=== PATIENT | female | born 1990 | race Caucasian/White ===

== ENCOUNTER 2016-03-12 12:48 | Outpatient (CLI) | payer OTHER ==
[~2016-03-12] VITALS: Ht 172.7 cm; Wt 73.0 kg
[~2016-03-12 12:48] MED LIST: ACET50TA PO; DOCU10ELUD PO; MOM30SS PO; PRENTAB9 PO; [UNRECOGNIZED DRUG - OTHER] TOP; lanolin cream TOP; motrin PO
[2016-03-12 13:08] VITALS: BP 113/77
[2016-03-12 14:10] VITALS: BP 92/55
[2016-03-12 15:55] VITALS: BP 108/67
[2016-03-12] MEDS ORDERED: LR 1,000 ML IV SCH (16:15)
[2016-03-12 17:01] VITALS: BP 97/55
[2016-03-12 17:25] LABS: MEAN CORPUSCULAR HEMOGLOBIN 30.2 pg (27.0-33.0); MEAN CORPUSCULAR HGB CONC 34.6 g/dl (32.0-36.5); MEAN CORPUSCULAR VOLUME 87.5 fl (80.0-96.0); RED CELL DISTRIBUTION WIDTH 13.5 % (11.5-14.5); WHITE BLOOD COUNT 9.6 K/mm3 (4.0-10.0)
[2016-03-12 18:46] VITALS: BP 100/56
== END 2016-03-12 20:35 | disposition home or self-care (01) ==
LOC: M LDO 12:48
PROVIDERS: ATTEND Obstetrics & Gynecology
DX: O26.853 Spotting complicating pregnancy, third trimester (principal); Z3A.32 32 weeks gestation of pregnancy; Z88.0 Allergy status to penicillin; Z88.1 Allergy status to other antibiotic agents

== ENCOUNTER → 2016-03-21 | Outpatient (CLI) | payer OTHER ==
--- NOTE | 2016-03-21 19:50 | REPUSA ---
CLINICAL HISTORY: BPP, EFW TECHNIQUE: Realtime sonographic images were obtained in multiple projections. COMMENTS: There is a single intrauterine gestation, transverse presentation. The biparietal diameter measures 8.4 cm. This corresponds to a gestational age of 33 weeks 6 days. The abdominal circumference and femur length measure 28.9 and 6.3 cm, respectively, and are relativel y proportionate to the BPD. The HC-AC ratio is normal. The composite age is 33 weeks 6 days. Estimated weight based on BPD and AC is 2117 grams. heart motion was observed. The heart rate is 136 beats per minute. The amniotic fluid volume is normal. The cervical length is 4.6 cm. IMPRESSION: Single, live, intrauterine gestation with a composite gestational age of 33 weeks 6 days. Estimated date of delivery is 06/05/2016.
== END ==
LOC: M RAD 17:34
PROVIDERS: ATTEND Obstetrics & Gynecology
DX: Z34.83 Encounter for supervision of other normal pregnancy, third trimester (principal)

== ENCOUNTER 2016-03-27 23:14 | Outpatient (CLI) | payer OTHER ==
[~2016-03-27] VITALS: Ht 172.7 cm; Wt 75.0 kg
[2016-03-27 23:30] VITALS: BP 106/72
== END 2016-03-28 01:10 | disposition home or self-care (01) ==
LOC: M LDO 23:14
PROVIDERS: ATTEND Obstetrics & Gynecology
DX: O44.43 Low lying placenta NOS or without hemorrhage, third trimester (principal); Z3A.34 34 weeks gestation of pregnancy

== ENCOUNTER → 2016-04-01 | Outpatient (CLI) | payer OTHER ==
--- NOTE | 2016-04-01 16:46 | REP ---
Obstetric sonography: History: at 35 weeks 1 day non reassuring NST. Limited OB sonography. The patient reports intermittent vaginal bleeding for the last 3 weeks. Findings: Scanning demonstrates a viable single intrauterine gestation in a cephalic lie. A posterior placenta is seen without evidence of previa or abruption. Grade 1. Closed cervical length is 3.1 cm. Transvaginal scanning of the cervix shows a hypoechoic hemorrhage covering the internal cervical os and measuring 5.6 x 1.4 x 4.1 cm. This shows some internal debris and septation. This is similar in size however to the prior study from 03/21/2016. Amniotic fluid index is normal 12.1 cm. Biophysical profile score is 8 out of a possible 8. The SD ratio in the umbilical cord artery by Doppler is elevated at 4.98 (2.00-3.00). Signed by Justo Willams MD 04/01/2016 04:52 P
== END ==
LOC: M RAD 14:53
PROVIDERS: ATTEND Advanced Practice Midwife
DX: Z34.83 Encounter for supervision of other normal pregnancy, third trimester (principal)

== ENCOUNTER → 2016-04-08 | Outpatient (REF) | payer OTHER | LOC: M LAB REF 13:19 | PROVIDERS: ATTEND Obstetrics & Gynecology | DX: Z34.83 Encounter for supervision of other normal pregnancy, third trimester (principal) ==

== ENCOUNTER 2016-04-11 12:30 | Outpatient (CLI) | payer OTHER ==
[~2016-04-11] VITALS: Ht 172.7 cm; Wt 78.0 kg
[2016-04-11 12:46] VITALS: BP 120/72
[2016-04-11 13:16] VITALS: BP 101/60
== END 2016-04-11 13:21 | disposition home or self-care (01) ==
LOC: M LDO 12:30
PROVIDERS: ATTEND Advanced Practice Midwife
DX: O36.8930 Maternal care for other specified fetal problems, third trimester, not applicable or unspecified (principal); Z3A.36 36 weeks gestation of pregnancy

== ENCOUNTER 2016-04-28 06:01 | Inpatient (IN) | payer OTHER ==
[2016-04-28] VITALS (36 sets, daily range): BP systolic 71–128; BP diastolic 39–87
[~2016-04-28] VITALS: Ht 172.7 cm; Wt 80.0 kg
[2016-04-28 07:33] LABS: MEAN CORPUSCULAR HGB CONC 32.3 g/dl (32.0-36.5); MEAN CORPUSCULAR VOLUME 86.8 fl (80.0-96.0); RED CELL DISTRIBUTION WIDTH 14.7 % (11.5-14.5); WHITE BLOOD COUNT 11.8 K/mm3 (4.0-10.0)
[2016-04-28] MEDS ORDERED: LR 1,000 ML IV SCH (08:20)
[2016-04-28] MEDS ORDERED: miSOPROStol 25 MCG 1/4 TAB (S0191) As Ordered ONE ×2 (08:20→08:26)
[2016-04-28] MEDS ORDERED: LACTATED RINGER'S 1000 ML IV STA (08:20)
[2016-04-28] MEDS ORDERED: miSOPROStol 25 MCG 1/4 TAB (S0191) PV ONE (08:30)
[2016-04-28] MEDS ORDERED: BUTORPHANOL 2 MG/ML INJ (J0595) IV ONE (11:45)
[2016-04-28] MEDS ORDERED: PROMETHAZINE INJ 25 MG/ML VIAL (J2550) IV ONE (11:45)
[2016-04-28] MEDS ORDERED: miSOPROStol 50 MCG 1/2 TAB (S0191) PO ONE (15:30)
[2016-04-28] MEDS ORDERED: REFRIGERATOR IV KEYS XX PRN (19:30)
[2016-04-28] MEDS ORDERED: ONDANSETRON 4MG/2ML VIAL (J2405) IV PRN (19:30)
[2016-04-28] MEDS ORDERED: LACTATED RINGER'S 1000 ML IV PRN (19:30)
[2016-04-28] MEDS ORDERED: NALOXONE INJ 0.4 MG/1 ML VIAL (J2310) IV PRN (19:30)
[2016-04-28] MEDS ORDERED: EPIDURAL/PCA KEYS XX PRN (19:30)
[2016-04-28] MEDS ORDERED: EPIDURAL COMMENT XX SCH (19:30)
[2016-04-28] MEDS ORDERED: ePHEDrine SULFATE 25 MG/5 ML(5MG/ML) SYRINGE IV PRN (19:30)
[2016-04-28] MEDS ORDERED: diphenhydrAMINE INJ 50MG/ML VIAL (J1200) IV PRN (19:30)
[2016-04-28] MEDS ORDERED: FENTANYL/ROPIVACAINE/NACL CADD 250 ML EPIDURAL SCH (19:30)
[2016-04-28] MEDS ORDERED: OXYTOCIN 30 UNITS IN 0.9% NaCl 500ML IV BAG (J2590) As Ordered ONE (23:06)
[2016-04-29] MEDS ORDERED: OXYTOCIN DRIP 30 UNITS in APPROPRIATE DILUENT 1 EA IV SCH (03:49)
[2016-04-29] MEDS ORDERED: LR 1,000 ML IV SCH (03:49)
[2016-04-29] MEDS ORDERED: DIBUCAINE 1% OINTMENT 30GM TOP PRN (04:00)
[2016-04-29] MEDS ORDERED: PROMETHAZINE 25 MG TAB PO PRN (04:00)
[2016-04-29] MEDS ORDERED: ONDANSETRON 4MG/2ML VIAL (J2405) IV PRN (04:00)
[2016-04-29] MEDS ORDERED: DOCUSATE SODIUM 100 MG CAP PO PRN (04:00)
[2016-04-29] MEDS ORDERED: RHOGAM 300 MCG (1500 IU) INJ (J2790) IM SCH (04:00)
[2016-04-29] MEDS ORDERED: METHYLERGONOVINE MALEATE 0.2 MG/ML VIAL (J2210) IM ONE (04:00)
[2016-04-29 04:44] LABS: MEAN CORPUSCULAR HEMOGLOBIN 28.1 pg (27.0-33.0); MEAN CORPUSCULAR HGB CONC 32.8 g/dl (32.0-36.5); MEAN CORPUSCULAR VOLUME 85.7 fl (80.0-96.0); RED CELL DISTRIBUTION WIDTH 14.8 % (11.5-14.5); WHITE BLOOD COUNT 15.1 K/mm3 (4.0-10.0)
[2016-04-29] MEDS: IBUPROFEN 800 MG TAB PO PRN ×2 (05:04→13:01)
[2016-04-29] MEDS: ACETAMINOPHEN 500 MG TAB PO PRN ×3 (06:25→20:12)
[2016-04-29 06:33] VITALS: BP 126/60
[2016-04-29] MEDS ORDERED: COLA100C PO (08:26)
[2016-04-29] MEDS ORDERED: ACET50TA PO (08:26)
[2016-04-29] MEDS ORDERED: IBUP-1114 PO (08:26)
[2016-04-29] MEDS: PRENATAL VITAMIN TAB PO SCH (09:49)
[2016-04-29 18:01] VITALS: BP 135/72
[2016-04-30] MEDS: IBUPROFEN 800 MG TAB PO PRN ×3 (01:35→13:13)
[2016-04-30 05:46] VITALS: BP 142/71
[2016-04-30] MEDS: PRENATAL VITAMIN TAB PO SCH (08:27)
[2016-04-30] MEDS: ACETAMINOPHEN 500 MG TAB PO PRN ×2 (08:28→19:17)
[2016-04-30 18:09] VITALS: BP 126/79
[2016-05-01] MEDS: IBUPROFEN 800 MG TAB PO PRN (04:09)
[2016-05-01 06:26] VITALS: BP 107/57
[2016-05-01] MEDS: ACETAMINOPHEN 500 MG TAB PO PRN (10:29)
[2016-05-01] MEDS: PRENATAL VITAMIN TAB PO SCH (10:29)
== END 2016-05-01 12:20 | disposition home or self-care (01) | DRG 560 ==
LOC: M LDI 06:01 → M OBS 04-29 06:31
PROVIDERS: ADMIT Obstetrics & Gynecology; ATTEND Obstetrics & Gynecology
PROC: 3E0P7GC Introduction of Other Therapeutic Substance into Female Reproductive, Via Natural or Artificial Opening (ICD-10-PCS; 2016-04-28)
PROC: 10907ZC Drainage of Amniotic Fluid, Therapeutic from Products of Conception, Via Natural or Artificial Opening (ICD-10-PCS; 2016-04-28)
PROC: 10E0XZZ Delivery of Products of Conception, External Approach (ICD-10-PCS; principal; 2016-04-29)
DX: O45.93 Premature separation of placenta, unspecified, third trimester (principal); F17.200 Nicotine dependence, unspecified, uncomplicated; Z37.0 Single live birth; Z3A.39 39 weeks gestation of pregnancy; O99.334 Smoking (tobacco) complicating childbirth; Z79.899 Other long term (current) drug therapy; Z88.0 Allergy status to penicillin; Z88.2 Allergy status to sulfonamides; Z83.3 Family history of diabetes mellitus; Z82.49 Family history of ischemic heart disease and other diseases of the circulatory system

== ENCOUNTER 2016-07-14 22:05 | Emergency (ER) | payer OTHER ==
[~2016-07-14] VITALS: Ht 172.7 cm; Wt 68.0 kg
[~2016-07-14 22:05] MED LIST changes: +COLA100C3 PO; +IBUP-1114 PO
[2016-07-14] MEDS ORDERED: ACETAMINOPHEN 325 MG TAB PO ONE (23:15)
[2016-07-14 23:26] VITALS: BP 116/82
--- NOTE | 2016-07-15 08:08 | REP ---
Clinical: Trauma . Technique: Internal rotation, external rotation, and Y view left shoulder . Findings: No acute fracture or dislocation. The acromioclavicular and glenohumeral joints are intact. No periarticular calcifications or degenerative changes are appreciated. Sub acromial space is normal. Surrounding soft tissues are unremarkable. Impression: Normal left shoulder radiographs. No acute fracture or dislocation Signed by Robinson Cho MD 07/15/2016 08:00 A
== END 2016-07-14 23:33 | disposition home or self-care (01) ==
LOC: M ED 23:07
DX: S43.52XA Sprain of left acromioclavicular joint, initial encounter (principal); W22.09XA Striking against other stationary object, initial encounter; Y92.019 Unspecified place in single-family (private) house as the place of occurrence of the external cause; Y93.89 Activity, other specified; Y99.9 Unspecified external cause status; F32.9 Major depressive disorder, single episode, unspecified; F17.200 Nicotine dependence, unspecified, uncomplicated; Z79.899 Other long term (current) drug therapy; Z88.0 Allergy status to penicillin; Z88.2 Allergy status to sulfonamides; Z88.8 Allergy status to other drugs, medicaments and biological substances

== ENCOUNTER → 2016-07-18 | Outpatient (REF) | payer OTHER | LOC: M LAB REF 16:54 | PROVIDERS: ATTEND Obstetrics & Gynecology | DX: R30.0 Dysuria (principal) ==

== ENCOUNTER 2016-10-22 12:37 | Emergency (ER) | payer OTHER, SELFPAY ==
[~2016-10-22] VITALS: Ht 175.3 cm; Wt 61.6 kg
[~2016-10-22 12:37] MED LIST changes: -COLA100C3 PO; +COLA100C5 PO
[2016-10-22] MEDS ORDERED: NS 1,000 ML IV ONE (13:30)
[2016-10-22] MEDS ORDERED: ONDANSETRON 4MG/2ML VIAL (J2405) IV ONE (13:30)
[2016-10-22] MEDS ORDERED: MORPHINE 4 MG/ML 1ML SYRINGE IV ONE (13:30)
[2016-10-22 13:43] LABS: BASO % 0.8 % (0.0-1.0); EOS # 0.1 K/mm3 (0.0-0.50); LARGE UNSTAINED CELL # 0.1 K/mm3 (0.0-0.4); LYMPH # 1.5 K/mm3 (1.5-6.5); MEAN CORPUSCULAR HEMOGLOBIN 27.9 pg (27.0-33.0); MEAN CORPUSCULAR HGB CONC 33.2 g/dl (32.0-36.5); MEAN CORPUSCULAR VOLUME 84.2 fl (80.0-96.0); MONO # 0.3 K/mm3 (0.0-0.8); MONO % 4.6 % (0.0-5.0); NEUTROPHILS # 3.9 K/mm3 (1.8-7.7); NEUTROPHILS % 66.6 % (36.0-66.0); PLATELET COUNT, AUTOMATED 336 k/mm3 (150-450); RED CELL DISTRIBUTION WIDTH 14.7 % (11.5-14.5); WHITE BLOOD COUNT 5.9 K/mm3 (4.0-10.0)
[2016-10-22 14:06] LABS: ALBUMIN 3.9 GM/DL (3.2-5.2); ALKALINE PHOSPHATASE 91 U/L (45-117); ALT/SGPT 20 U/L (12-78); ANION GAP 7 MEQ/L (8-16); AST/SGOT 13 U/L (15-37); BILIRUBIN,DIRECT < 0.1 MG/DL (0.0-0.2); BILIRUBIN,TOTAL 0.3 MG/DL (0.2-1.0); BLOOD UREA NITROGEN 9 MG/DL (7-18); CALCIUM LEVEL 9.1 MG/DL (8.5-10.1); CARBON DIOXIDE LEVEL 23 MEQ/L (21-32); CHLORIDE LEVEL 112 MEQ/L (98-107); CREATININE FOR GFR 0.72 MG/DL (0.55-1.02); GLOMERULAR FILTRATION RATE > 60.0 (>60); GLUCOSE, FASTING 89 MG/DL (70-105); HCG, SERUM QUANTITATIVE < 1.0 MIU/ML; POTASSIUM SERUM 4.1 MEQ/L (3.5-5.1); SODIUM LEVEL 142 MEQ/L (136-145); TOTAL PROTEIN 7.8 GM/DL (6.4-8.2)
--- NOTE | 2016-10-22 14:23 | REP ---
FIRST TRIMESTER ULTRASOUND: HISTORY: Vaginal bleeding. The uterus measures 7.1 cm in transverse x 4 cm in AP by 8.2 cm in cephalocaudal dimensions. The uterus is septated. The endometrium measures 6.5 mm. There is no gestational sac in the endometrial cavity. The right ovary measures 2.9 x 2. X 2 cm. The left ovary is not seen. IMPRESSION: 1. There is no gestational sac in the endometrial cavity. An ectopic cannot be excluded. A repeat examination is recommended for further valuation. 2. The left ovary is not seen. Signed by Alfredito Alcala MD 10/22/2016 02:25 P
[2016-10-22 14:25] VITALS: BP 143/68
[2016-10-22] MEDS ORDERED: NORCOTAB PO (14:29)
== END 2016-10-22 14:39 | disposition home or self-care (01) ==
LOC: M ED 12:37
DX: O03.9 Complete or unspecified spontaneous abortion without complication (principal); O99.340 Other mental disorders complicating pregnancy, unspecified trimester; O99.330 Smoking (tobacco) complicating pregnancy, unspecified trimester; Z79.899 Other long term (current) drug therapy; Z88.0 Allergy status to penicillin; Z88.2 Allergy status to sulfonamides; Z88.8 Allergy status to other drugs, medicaments and biological substances; Z3A.00 Weeks of gestation of pregnancy not specified
CPT/HCPCS: 76801; 76817; 80048; 80076; 84702; 85025; 86850; 86900; 86901; 93976; 96374; 96375; 99283; J2405